=== PATIENT | female | born 1975 | race Caucasian/White ===

== ENCOUNTER 2016-11-01 12:20 | Day surgery (SDC) | payer MEDICAID, OTHER ==
[~2016-11-01] VITALS: Ht 157.5 cm; Wt 49.2 kg
[~2016-11-01 12:20] MED LIST: ACET500C5 PO; ALLO100T PO; AMLO5TAB4 PO; APR50 PO; CEPH-443 PO; HYDR-906 PO; LISI20TA11 PO; METO50TA16 PO; NEPH PO; ONDA4TAB11 PO; ONDA4TAB8 PO; SEVE800T10 PO; SODI15OR8 PO
[2016-11-01] MEDS ORDERED: METO50TA16 PO (12:55)
[2016-11-01] MEDS ORDERED: NEPH PO (12:56)
[2016-11-01] MEDS ORDERED: APR50 PO (12:56)
[2016-11-01 13:24] VITALS: BP 176/105; PULSE 70; RESP 18
[2016-11-01 13:25] VITALS: Ht 157.5 cm; Wt 49.2 kg
[2016-11-01] MEDS ORDERED: LIDOCAINE 1% (STERILE-PAK) 30 ML INJ ONE (14:34)
[2016-11-01] MEDS ORDERED: GELATIN SIZE 100 SPONGE ONE (14:34)
[2016-11-01] MEDS ORDERED: BUPIVACAINE 0.25% (MPF) 30 ML INJ ONE (14:35)
[2016-11-01] MEDS ORDERED: HEPARIN 1000 UNITS/NS (A-LINE) 0 ML ONE (14:35)
[2016-11-01] MEDS ORDERED: THROMBIN 5000 UNIT VIAL ONE (14:35)
[2016-11-01] MEDS ORDERED: HEPARIN 1000 UNITS/ML 10 ML INJ ONE (14:38)
[2016-11-01 15:06] VITALS: BP 175/109; PULSE 74; RESP 16
[2016-11-01] MEDS ORDERED: INSULIN REGULAR, HUMAN 100 UNIT/1 ML 3ML VIAL SC SCH (15:30)
[2016-11-01] MEDS ORDERED: NA BICARBONATE 8.4% 50 ML SYG IV SCH (15:30)
[2016-11-01] MEDS ORDERED: DEXTROSE 50% 50 ML SYRINGE IV SCH (15:30)
== END 2016-11-01 17:43 | disposition home or self-care (01) ==
LOC: SDS 12:20
PROVIDERS: ATTEND Thoracic Surgery (Cardiothoracic Vascular Surgery)
DX: I12.0 Hypertensive chronic kidney disease with stage 5 chronic kidney disease or end stage renal disease (principal); N18.6 End stage renal disease; Z53.9 Procedure and treatment not carried out, unspecified reason; E11.9 Type 2 diabetes mellitus without complications
CPT/HCPCS: 82962; 84132; 84703; J1815; Z7610; J1644